=== PATIENT | female | born 1985 | race Caucasian/White ===

== ENCOUNTER 2020-07-30 14:25 | Inpatient (IN) ==
[2020-07-30] MEDS ORDERED: SODIUM CHLORIDE 0.9% 1000ML 2,000 ML IV ONE (14:34)
[2020-07-30] MEDS ORDERED: ACETAMINOPHEN 1,000 MG/100 ML VIAL IV STA (14:34)
[2020-07-30] MEDS ORDERED: MoRPHine SULFATE 2 MG/ML CARP IV STA (14:37)
[2020-07-30] MEDS ORDERED: MoRPHine SULFATE 2 MG/ML CARP ONE (14:42)
[2020-07-30 14:48] LABS: Hematocrit (blood only) 33.4 % (37-47); Mean Corpuscular Hemoglobin 26.6 pg (25-34); Mean Corpuscular Hgb Conc 32.9 g/dL (32-36); Mean Corpuscular Volume 80.7 fL (80-100); Mean Platelet Volume 11.5 fL (7.4-10.4); Platelet Count 235 K/uL (130-400); RDW Coefficient of Variation 13.3 % (11.5-14.5); RDW Standard Deviation 39.7 fL (36.4-46.3); Red Blood Count 4.14 M/uL (4.2-5.4); White Blood Count 18.36 K/uL (4.8-10.8)
--- NOTE | 2020-07-30 14:58 | Emergency Department Note ---
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 She presented to ED via ALS with placenta yet to deliver with report of rupture of membrane approximately 11 AM. Per patient she is Rh+. I discussed the patient's case prior to arrival with [facility], Dr. Childress, as she follows with Leanne [facility]. On arrival the patient is uncomfortable mild pallor in moderate-severe pain with heart rate in the 120s in the setting of pain with blood pressure stable. Pitocin initiated on arrival per OB team. Umbilical cord is external with placenta yet to deliver. No overt hemorrhage at this time. Labs drawn including Type and screen. IV fluids initiated. Dr. Childress at the bedside with delivery of the placenta per his note. Patient admitted to OB floor promptly thereafter. WBC, 18K , nonspecific. H/H 11/33.4, nonspecific. Platelets wnl. Chemistry without significant acidosis. Electrolytes unremarkable. LFTs without significant abnormality. Blood type confirmed AB+. Triage Nursing notes reviewed and agree them. Prior medical records reviewed Vital Signs: reviewed and remarkable for tachycardia. Differential diagnosis: NSVG, Post- hemorrhage, chorio/endometritis, uterine rupture among others considered. ER treatment provided: See below. Diagnostics interpreted by me: Cardiac Monitoring: An order for continuous cardiac monitoring was placed and demonstrated sinus tachycardia, 125 bpm, no ectopy. Laboratory studies: See below Consultation(s): Dr. Childress, Leanne [facility]. 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 She presented to ED via ALS with placenta yet to deliver with report of rupture of membrane approximately 11 AM. Per patient she is Rh+. I discussed the patient's case prior to arrival with [facility], Dr. Childress, as she follows with Leanne [facility]. ROS: See above HPI for pertinent positives & negatives. Otherwise limited 2/2 emergent presentation. PAST MEDICAL HISTORY:See Below PAST SURGICAL HISTORY:See Below FAMILY HISTORY:See Below SOCIAL HISTORY:See Below HOME MEDICATIONS:See Below ALLERGIES:See Below VITALS:See Below PHYSICAL EXAMINATION: Limited secondary emergent arrival. GENERAL: Uncomfortable in moderate-severe pain, in no acute distress. HENT: Normocephalic, atraumatic. Oropharynx with dry mucous membranes and otherwise unremarkable. EYES: Normal conjunctiva. Sclera non-icteric. RESPIRATORY: Tachypneic in setting of pain without increased work of breathing. CARDIAC: Tachycardic rate, : Umbilical cord is external with placenta yet to deliver. No overt hemorrhage. LOWER EXTREMITIES: No edema. No discoloration. NEURO: Normal sensorium. SKIN: Mild pallor. no jaundice noted. Tony Pappas MD Past Med/Surg History Medical History Asthma Migraine , delivered Social History Smoking Status: Never smoker Hx Alcohol Use: No Hx Substance Use: No Preferred Language: Welsh Beliefs That Will Affect Care: None marital status: Current Living Situation: Spouse and Family Other Information That Helps Us Care for You: No Feels Safe at Home: Yes Safety Concerns: Feels Safe At This Time Assistive Devices: None Allergies Allergies Allergy/AdvReac Type Severity Reaction Status Date / Time crab Allergy Intermediate shortness Verified 07/30/20 16:56 of breath Home Meds Home Medications Medication Instructions Recorded Confirmed albuterol mcg INHALATION 07/30/20 prenat.vits,mike,dex-zkum-[id number] tab 07/30/20 [ Vitamin] Results & Data (ED) Vital Signs Vital Signs - 24 hr 07/30/20 14:30 07/30/20 14:33 07/30/20 14:34 Temperature 36.9 C Temperature Source Oral Pulse Rate 125 H 104 H 100 H Pulse Rate from SpO2 Sensor 104 H 101 H Respiratory Rate 28 H 23 18 Respiratory Effort / Characteristics Non-Labored Respiratory Depth Normal Respiratory Pattern Regular Blood Pressure 122/81 110/67 Blood Pressure Mean 94 81 Pulse Oximetry 99 100 100 Oxygen Delivery Method Room Air Sepsis Recent Fever Within 48 Hours No Sepsis New/Unexplained Change in Mental Status No Sepsis Action Taken by Nursing No Action Required 07/30/20 14:35 07/30/20 14:37 07/30/20 14:40 Temperature Temperature Source Pulse Rate 95 H 93 H 106 H Pulse Rate from SpO2 Sensor 97 H 92 H Respiratory Rate 17 17 19 Respiratory Effort / Characteristics Respiratory Depth Respiratory Pattern Blood Pressure 111/68 Blood Pressure Mean 82 Pulse Oximetry 100 100 Oxygen Delivery Method Sepsis Recent Fever Within 48 Hours Sepsis New/Unexplained Change in Mental Status Sepsis Action Taken by Nursing 07/30/20 14:42 07/30/20 14:53 07/30/20 15:10 Temperature 36.9 C Temperature Source Pulse Rate 100 H 114 H 100 H Pulse Rate from SpO2 Sensor Respiratory Rate 32 H 20 Respiratory Effort / Characteristics Respiratory Depth Respiratory Pattern Blood Pressure 121/83 139/82 125/56 L Blood Pressure Mean 95 Pulse Oximetry Oxygen Delivery Method Sepsis Recent Fever Within 48 Hours Sepsis New/Unexplained Change in Mental Status Sepsis Action Taken by Nursing Laboratory Data Attestation: I reviewed the patient's lab results. Result diagrams: 07/30/20 14:39 07/30/20 14:37 Lab Results 07/30/20 07/30/20 07/30/20 Range/Units 14:37 14:37 14:37 WBC (4.8-10.8) K/uL RBC (4.2-5.4) M/uL Hgb (12.0-16.0) g/dL Hct (37-47) % MCV (80-100) fL MCH (25-34) pg MCHC (32-36) g/dL RDW Std Deviation (36.4-46.3) fL RDW Coeff of Claudia (11.5-14.5) % Plt Count (130-400) K/uL MPV (7.4-10.4) fL Immature Gran % (Auto) % Neut % (Auto) % Lymph % (Auto) % Alfalfa % (Auto) % Eos % (Auto) % Baso % (Auto) % Neut # (Auto) (1.4-6.5) K/uL Lymph # (Auto) (1.2-3.4) K/uL Alfalfa # (Auto) (0.11-0.59) K/uL Eos # (Auto) (0-0.5) K/uL Baso # (Auto) (0-0.2) K/uL Immature Gran # (Auto) (0.00-0.02) K/uL PT 9.9 (9.0-12.0) Seconds INR 1.0 (0.9-1.1) APTT 22.2 (21.0-31.0) Seconds PTT Ratio 0.8 Sodium 135 L (136-145) mmol/L Potassium 3.6 (3.5-5.1) mmol/L Chloride 104 (98-107) mmol/L Carbon Dioxide 19 L (21-32) mmol/L Anion Gap 12.0 H (3-11) BUN 8 (7-18) mg/dl Creatinine 0.85 (0.6-1.2) mg/dl Est Cr Clr Drug Dosing Not Reportable Est GFR ( Amer) 102.2 ml/min Est GFR (Non-Af Amer) 88.2 ml/min BUN/Creatinine Ratio 9.1 L (10-20) Glucose 122 H (70-99) mg/dl Calcium 8.4 L (8.5-10.1) mg/dl Total Bilirubin 0.2 (0.2-1) mg/dl AST 19 (15-37) U/L ALT 12 (12-78) U/L Alkaline Phosphatase 150 H (45-117) U/L Total Protein 6.9 (6.4-8.2) gm/dl Albumin 2.5 L (3.4-5.0) gm/dl Globulin 4.4 H (2.5-4.0) gm/dl Albumin/Globulin Ratio 0.6 L (0.9-2) Blood Type AB Positive Antibody Screen NEGATIVE 07/30/20 Range/Units 14:39 WBC 18.36 H (4.8-10.8) K/uL RBC 4.14 L (4.2-5.4) M/uL Hgb 11.0 L (12.0-16.0) g/dL Hct 33.4 L (37-47) % MCV 80.7 (80-100) fL MCH 26.6 (25-34) pg MCHC 32.9 (32-36) g/dL RDW Std Deviation 39.7 (36.4-46.3) fL RDW Coeff of Claudia 13.3 (11.5-14.5) % Plt Count 235 (130-400) K/uL MPV 11.5 H (7.4-10.4) fL Immature Gran % (Auto) 0.4 % Neut % (Auto) 84.1 % Lymph % (Auto) 9.0 % Alfalfa % (Auto) 6.3 % Eos % (Auto) 0.1 % Baso % (Auto) 0.1 % Neut # (Auto) 15.45 H (1.4-6.5) K/uL Lymph # (Auto) 1.65 (1.2-3.4) K/uL Alfalfa # (Auto) 1.15 H (0.11-0.59) K/uL Eos # (Auto) 0.02 (0-0.5) K/uL Baso # (Auto) 0.02 (0-0.2) K/uL Immature Gran # (Auto) 0.07 H (0.00-0.02) K/uL PT (9.0-12.0) Seconds INR (0.9-1.1) APTT (21.0-31.0) Seconds PTT Ratio Sodium (136-145) mmol/L Potassium (3.5-5.1) mmol/L Chloride (98-107) mmol/L Carbon Dioxide (21-32) mmol/L Anion Gap (3-11) BUN (7-18) mg/dl Creatinine (0.6-1.2) mg/dl Est Cr Clr Drug Dosing Est GFR ( Amer) ml/min Est GFR (Non-Af Amer) ml/min BUN/Creatinine Ratio (10-20) Glucose (70-99) mg/dl Calcium (8.5-10.1) mg/dl Total Bilirubin (0.2-1) mg/dl AST (15-37) U/L ALT (12-78) U/L Alkaline Phosphatase (45-117) U/L Total Protein (6.4-8.2) gm/dl Albumin (3.4-5.0) gm/dl Globulin (2.5-4.0) gm/dl Albumin/Globulin Ratio (0.9-2) Blood Type Antibody Screen Administered Medications Ibuprofen (Ibuprofen 600 Mg Tab) 600 mg PO Q4H PRN PRN Reason: Pain/PAL/Cramping/Fever Stop: 08/29/20 15:31 Last Admin: 07/30/20 22:09 Dose: 600 mg Documented by: [id number] Discontinued Medications Sodium Chloride (Nss 1000ml) 2,000 mls @ 999 mls/hr IV .Q2H1M ONE Stop: 07/30/20 16:34 Last Admin: 07/30/20 14:35 Dose: 999 mls/hr Documented by: [id number] Morphine Sulfate (Morphine Sulfate 2 Mg/Ml Carp) 2 mg IV NOW STA Stop: 07/30/20 14:38 Last Admin: 07/30/20 15:01 Dose: Not Given Documented by: [id number] Morphine Sulfate (Morphine Sulfate 2 Mg/Ml Carp) Confirm Administered Dose 2 mg .ROUTE .STK-MED ONE Stop: 07/30/20 14:43 Last Admin: 07/30/20 15:01 Dose: Not Given Documented by: [id number] Discharge Plan Visit Data Chief Complaint: OB/Uterine Contractions Stated Complaint: CHILDBIRTH ED Provider: Tony Pappas Discharge Problem: Term delivered, , delivered Patient Disposition: Admitted As Inpatient Discharge Instructions Interventions: ED Discharge Assessment Last Done: 07/30/20 14:49
[2020-07-30 15:00] LABS: Partial Thromboplastin Ratio 0.8; Partial Thromboplastin Time 22.2 Seconds (21.0-31.0); Prothrombin Time 9.9 Seconds (9.0-12.0)
[2020-07-30 15:07] LABS: Alanine Aminotransferase 12 U/L (12-78); Albumin Level 2.5 gm/dl (3.4-5.0); Aspartate Aminotransferase 19 U/L (15-37); BUN Creatinine Ratio 9.1 (10-20); Blood Urea Nitrogen 8 mg/dl (7-18); Calcium 8.4 mg/dl (8.5-10.1); Carbon Dioxide 19 mmol/L (21-32); Chloride 104 mmol/L (98-107); Est GFR (African American) 102.2 ml/min; Est GFR (Non-African American) 88.2 ml/min; Glucose 122 mg/dl (70-99); Potassium 3.6 mmol/L (3.5-5.1); Sodium 135 mmol/L (136-145)
[2020-07-30 15:10] LABS: Albumin Globulin Ratio 0.6 (0.9-2); Alkaline Phosphatase 150 U/L (45-117); Bilirubin,Total 0.2 mg/dl (0.2-1); Globulin 4.4 gm/dl (2.5-4.0); Total Protein 6.9 gm/dl (6.4-8.2)
[2020-07-30 15:13] LABS: Basophils # (auto) 0.02 K/uL (0-0.2); Basophils % (auto) 0.1 %; Eosinophils # (auto) 0.02 K/uL (0-0.5); Eosinophils % (auto) 0.1 %; Immature Granulocytes # (auto) 0.07 K/uL (0.00-0.02); Immature Granulocytes % (auto) 0.4 %; Lymphocytes # (auto) 1.65 K/uL (1.2-3.4); Monocytes # (auto) 1.15 K/uL (0.11-0.59); Monocytes % (auto) 6.3 %; Neutrophils # (auto) 15.45 K/uL (1.4-6.5); Neutrophils % (auto) 84.1 %
[2020-07-30] MEDS ORDERED: LACTATED RINGER'S 1,000 ML IV PRN (15:32)
[2020-07-30] MEDS ORDERED: BENZOCAINE 20% AER SPR 82.5 GM CAN EXT PRN (15:32)
[2020-07-30] MEDS ORDERED: HYDROCORTISONE ACETATE 25 MG SUPP PR PRN (15:32)
[2020-07-30] MEDS ORDERED: SUPERCREAM 0.870% 15 GM JAR EXT PRN (15:32)
[2020-07-30] MEDS ORDERED: IBUPROFEN 600 MG TAB PO PRN (15:32)
[2020-07-30] MEDS ORDERED: OXYTOCIN 30 UNITS/500 ML BAG IV PRN (15:32)
[2020-07-30] MEDS ORDERED: OXYTOCIN 20 UNITS in LACTATED RINGER'S 1,000 ML IV SCH (15:32)
[2020-07-30] MEDS ORDERED: ACETAMINOPHEN 325 MG TAB PO PRN (15:32)
--- NOTE | 2020-07-30 15:58 | History & Physical Report ---
Date of Service July 30, 2020 Assessment & Plan (1) Term delivered: (2) , delivered: Admission and Anticipated Discharge Date Admission Date: July 30, 2020 History of Present Illness 35 F P2002 at 39 weeks seen in ER with home vaginal delivery with transfer to hospital with baby for heavy vaginal bleeding and retained placenta. Patient pale and tachycardic. Was delivered at home by sales operations associate and individualized education plan aide and had problem with tight nuchal cord and difficult delivery. Baby was not breathing upon with Apgars 2/4/4 per information from sales operations associate. Patient had prior C- section with home delivery of last baby Primary Care Provider: NO PCP Past Med/Surg History Medical History (Updated 07/30/20 @ 15:58 by Julian Childress MD) , delivered Social History Smoking Status: Never smoker Preferred Language: Hungarian Feels Safe at Home: Yes Review of Systems Review of Systems: All systems reviewed & are unremarkable except as noted in HPI & below Physical Exam Constitutional: WD/WN, vitals as above + acute distress and + disheveled Eyes: PERRL, conjunctivae normal, anicteric sclerae Respiratory: normal respiratory effort, lungs clear to auscultation Cardiovascular: Rate/Rhythm: regular rhythm and + tachycardic Gastrointestinal (Abdomen): normal bowel sounds, soft, nontender, no hepatosplenomegaly Percussion/Palpation: abdomen soft Skin: no rashes, warm and dry Neurologic: patellar DTR's 2+ bilat, sensation intact Psychiatric: A+Ox3, euthymic affect Genitourinary: Speculum/Bimanual Exam: + vaginal swelling, + vaginal bleeding and + uterus enlarged OB Exam Abdomen: + fundal height (Placenta was removed entirely intact in the ER with meconium staining noted) Fundus: + firm and + relation to umbilicus (below U) Results & Data Results & Data ([facility]) Vital Signs (Past 12 Hours) Vital Signs Temp Pulse Resp BP Pulse Ox 07/30/20 15:38 90 114/55 L 07/30/20 14:42 100 H 32 H 121/83 07/30/20 14:40 106 H 19 07/30/20 14:37 93 H 17 111/68 100 07/30/20 14:35 95 H 17 100 07/30/20 14:34 100 H 18 100 07/30/20 14:33 104 H 23 110/67 100 07/30/20 14:30 36.9 C 125 H 28 H 122/81 99 Laboratory Results 07/30/20 07/30/20 07/30/20 14:37 14:37 14:37 WBC RBC Hgb Hct MCV MCH MCHC RDW Std Deviation RDW Coeff of Claudia Plt Count MPV Immature Gran % (Auto) Neut % (Auto) Lymph % (Auto) [place] % (Auto) Eos % (Auto) Baso % (Auto) Neut # (Auto) Lymph # (Auto) [place] # (Auto) Eos # (Auto) Baso # (Auto) Immature Gran # (Auto) PT 9.9 INR 1.0 APTT 22.2 PTT Ratio 0.8 Sodium 135 L Potassium 3.6 Chloride 104 Carbon Dioxide 19 L Anion Gap 12.0 H BUN 8 Creatinine 0.85 Est Cr Clr Drug Dosing Not Reportable Est GFR ( Amer) 102.2 Est GFR (Non-Af Amer) 88.2 BUN/Creatinine Ratio 9.1 L Glucose 122 H Calcium 8.4 L Total Bilirubin 0.2 AST 19 ALT 12 Alkaline Phosphatase 150 H Total Protein 6.9 Albumin 2.5 L Globulin 4.4 H Albumin/Globulin Ratio 0.6 L Blood Type AB Positive Antibody Screen NEGATIVE 07/30/20 14:39 WBC 18.36 H RBC 4.14 L Hgb 11.0 L Hct 33.4 L MCV 80.7 MCH 26.6 MCHC 32.9 RDW Std Deviation 39.7 RDW Coeff of Claudia 13.3 Plt Count 235 MPV 11.5 H Immature Gran % (Auto) 0.4 Neut % (Auto) 84.1 Lymph % (Auto) 9.0 [place] % (Auto) 6.3 Eos % (Auto) 0.1 Baso % (Auto) 0.1 Neut # (Auto) 15.45 H Lymph # (Auto) 1.65 [place] # (Auto) 1.15 H Eos # (Auto) 0.02 Baso # (Auto) 0.02 Immature Gran # (Auto) 0.07 H PT INR APTT PTT Ratio Sodium Potassium Chloride Carbon Dioxide Anion Gap BUN Creatinine Est Cr Clr Drug Dosing Est GFR ( Amer) Est GFR (Non-Af Amer) BUN/Creatinine Ratio Glucose Calcium Total Bilirubin AST ALT Alkaline Phosphatase Total Protein Albumin Globulin Albumin/Globulin Ratio Blood Type Antibody Screen Code Status & VTE Plan VTE Prophylaxis Plan VTE Prophylaxis will be ordered: No
[2020-07-30] MEDS ORDERED: PATIENT'S ALLERGY INFO NEEDS ENTERED SCH (16:00)
[2020-07-30] MEDS ORDERED: OXYTOCIN 30 UNITS/500ML NSS ONE (16:02)
--- NOTE | 2020-07-30 19:27 | Delivery Summary ---
Vaginal Delivery Summary Date of Service July 30, 2020 Supervising Physician Co-Signing Physician Notes Procedure Note I was called stat to ER where patient was brought in after having a home delivery with retained placenta. She was bleeding and pale and tachycardic on presentation to ER. Inspected the perineum with extensive bruising from the delivery. Cord and placenta were in place. I grasped cord and with gentle fundal massage and traction the placenta delivered spontaneously and intact. The placenta was meconium stained and intact and submitted to pathology. Oxytocin was started and fundal massage to control bleeding. Uterus was found t o be firm and below the umbilicus after delivery of placenta. EBL 200 ml. Small perineal tear on left side of perineum not bleeding and no stitches needed. Patient stable.
[2020-07-31] MEDS ORDERED: FERROUS SULFATE 325 MG TAB PO SCH (08:00)
[2020-07-31] MEDS ORDERED: PRENATAL VITAMIN 1 TAB PO SCH (08:00)
--- NOTE | 2020-07-31 10:10 | Obstetrical Progress Note ---
Date of Service July 31, 2020 Subjective Ambulation: ambulating normally Voiding: no voiding problems Passing Gas:: Yes Diet Tolerance:: regular diet Lochia:: Small Feeding Type:: bottle feeding Physical Exam Constitutional WD/WN, vitals as above comfortable for discharge Results & Data ([facility]) Vital Signs (Past 12 Hours) Vital Signs Temp Pulse Resp BP Pulse Ox 07/31/20 07:00 36.8 C 106 H 18 102/69 100 07/31/20 03:00 36.8 C 87 18 111/68 07/30/20 23:00 36.8 C 88 18 99/64 L Laboratory Results 07/30/20 07/30/20 07/30/20 14:37 14:37 14:37 WBC RBC Hgb Hct MCV MCH MCHC RDW Std Deviation RDW Coeff of Claudia Plt Count MPV Immature Gran % (Auto) Neut % (Auto) Lymph % (Auto) [place] % (Auto) Eos % (Auto) Baso % (Auto) Neut # (Auto) Lymph # (Auto) [place] # (Auto) Eos # (Auto) Baso # (Auto) Immature Gran # (Auto) PT 9.9 INR 1.0 APTT 22.2 PTT Ratio 0.8 Sodium 135 L Potassium 3.6 Chloride 104 Carbon Dioxide 19 L Anion Gap 12.0 H BUN 8 Creatinine 0.85 Est Cr Clr Drug Dosing Not Reportable Est GFR ( Amer) 102.2 Est GFR (Non-Af Amer) 88.2 BUN/Creatinine Ratio 9.1 L Glucose 122 H Calcium 8.4 L Total Bilirubin 0.2 AST 19 ALT 12 Alkaline Phosphatase 150 H Total Protein 6.9 Albumin 2.5 L Globulin 4.4 H Albumin/Globulin Ratio 0.6 L COVID-19 Eval Order SARS-CoV-2, RNA, NAAT Blood Type AB Positive Antibody Screen NEGATIVE 07/30/20 07/30/20 07/30/20 14:39 17:00 17:00 WBC 18.36 H RBC 4.14 L Hgb 11.0 L Hct 33.4 L MCV 80.7 MCH 26.6 MCHC 32.9 RDW Std Deviation 39.7 RDW Coeff of Claudia 13.3 Plt Count 235 MPV 11.5 H Immature Gran % (Auto) 0.4 Neut % (Auto) 84.1 Lymph % (Auto) 9.0 [place] % (Auto) 6.3 Eos % (Auto) 0.1 Baso % (Auto) 0.1 Neut # (Auto) 15.45 H Lymph # (Auto) 1.65 [place] # (Auto) 1.15 H Eos # (Auto) 0.02 Baso # (Auto) 0.02 Immature Gran # (Auto) 0.07 H PT INR APTT PTT Ratio Sodium Potassium Chloride Carbon Dioxide Anion Gap BUN Creatinine Est Cr Clr Drug Dosing Est GFR ( Amer) Est GFR (Non-Af Amer) BUN/Creatinine Ratio Glucose Calcium Total Bilirubin AST ALT Alkaline Phosphatase Total Protein Albumin Globulin Albumin/Globulin Ratio COVID-19 [facility] SARS-CoV-2, RNA, NAAT NEGATIVE Blood Type Antibody Screen
[2020-07-31 10:34] LABS: Hematocrit (blood only) 23.6 % (37-47); Mean Corpuscular Hemoglobin 26.7 pg (25-34); Mean Corpuscular Hgb Conc 33.9 g/dL (32-36); Mean Corpuscular Volume 78.7 fL (80-100); Mean Platelet Volume 10.9 fL (7.4-10.4); Platelet Count 181 K/uL (130-400); RDW Coefficient of Variation 13.5 % (11.5-14.5); RDW Standard Deviation 38.7 fL (36.4-46.3); White Blood Count 11.16 K/uL (4.8-10.8)
[2020-07-31] MEDS ORDERED: bisacodyL 5 MG TABEC PO SCH (20:00)
--- NOTE | 2020-08-09 22:01 | Discharge Summary (DS) ---
DATE OF DISCHARGE: 07/31/2020 HOSPITAL COURSE: The patient presented to the ER via ambulance with a home delivery by a nurse midwi romy that was planned. She was a delivered at home, was taken to the emergency room via ambulance because of acute distress of the and bleeding with a retained placenta. Upon presentation t o the ER, discovered that she was bleeding. Removed the placenta with gentle cord traction without d ifficulty and the placenta was found to be complete. The patient was admitted for observation and bl ding status was stable. Hospital course was unremarkable. The patient was discharged home on 07/19 in stable condition, regular diet on discharge. Instructions were given to the patient to fol low up in the office. Motrin for pain. Condition on discharge is stable. Job ID: [id number]
== END 2020-07-31 13:54 | disposition home or self-care (01) | DRG 769 ==
LOC: ED 14:25 → 4S1 14:49 → 4S2 18:00